=== PATIENT | male | born 1955 | race Caucasian/White ===

== ENCOUNTER 2016-10-08 20:14 | Emergency (ER) | payer BC ==
[~2016-10-08] VITALS: Ht 182.9 cm; Wt 104.3 kg
[2016-10-08 20:42] LABS: HEMOGLOBIN 14.4 g/dL (14.1-18.0); LYMPH # 2.1 K/mm3 (0.7-4.5); LYMPH % 25.8 % (10-50)
[2016-10-08 20:46] LABS: URINE BILIRUBIN - DIPSTICK NEGATIVE (NEG); URINE BLOOD 2+ (NEG)
--- OUTSIDE RECORDS SUMMARY | 2016-10-08 21:51 | External Medical Summary Rpt ---
Author Author IVETH Address Unknown Phone [email or web address] Purpose Continuity of Care Document - through 2016
--- OUTSIDE RECORDS SUMMARY | 2016-10-08 21:51 | External Medical Summary Rpt ---
Author Author IVETH Address Unknown Phone [email or web address] Purpose Continuity of Care Document - through 2016
--- OUTSIDE RECORDS SUMMARY | 2016-10-08 21:51 | External Medical Summary Rpt ---
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 [place] ARTERIES OF EXTREMITIES WITH INTERMITTEN T CLAUDICATIO N, BILATERAL LEGS I25.2 OLD 07-16-2016 MYOCARDIAL INFARCTION K21.9 GASTRO-ESOP 07-16-2016 HAGEAL REFLUX DISEASE WITHOUT ESOPHAGITIS M19.90 UNSPECIFIED 07-16-2016 OSTEOARTHRI TIS, UNSPECIFIED SITE R06.02 SHORTNESS 07-16-2016 OF BREATH R07.9 CHEST PAIN, 07-16-2016 UNSPECIFIED 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
--- OUTSIDE RECORDS SUMMARY | 2016-10-08 21:51 | External Medical Summary Rpt ---
Author Author JOSE Akhtar, JOSE Akhtar Organization [employer] Address Unknown Phone Unavailable
--- OUTSIDE RECORDS SUMMARY | 2016-10-08 21:51 | External Medical Summary Rpt ---
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.213 ATHEROSCLER 07-19-2016 OSIS OF [place] ARTERIES OF EXTREMITIES WITH INTERMITTEN T CLAUDICATIO N, BILATERAL LEGS I25.2 OLD 07-16-2016 MYOCARDIAL INFARCTION K21.9 GASTRO-ESOP 07-16-2016 HAGEAL REFLUX DISEASE WITHOUT ESOPHAGITIS M19.90 UNSPECIFIED 07-16-2016 OSTEOARTHRI TIS, UNSPECIFIED SITE R06.02 SHORTNESS 07-16-2016 OF BREATH R07.9 CHEST PAIN, 07-16-2016 UNSPECIFIED 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
--- OUTSIDE RECORDS SUMMARY | 2016-10-08 21:51 | External Medical Summary Rpt ---
Demographics Preferred Language Nigerian Marital Status Unknown Restorationism Affiliation Unknown Race Unknown Ethnic Group Unknown Author Author JOSE Address Unknown Phone Immunization No patient found.
--- OUTSIDE RECORDS SUMMARY | 2016-10-08 21:51 | External Medical Summary Rpt ---
Demographics Preferred Language Pakistani Marital Status Unknown Denominational Affiliation Unknown Race Unknown Ethnic Group Unknown Author Author JOSE Address Unknown Phone Immunization No patient found.
--- NOTE | 2016-10-08 22:34 | Emergency Room Report ---
History of Present Illness Time Seen by [id number] Presenting Problem in Triage Pt arrived:Walked Presenting Problem:C/O LEFT FLANK PAIN STARTED TODAY. HX KIDNEY STONES ALSO C/O DYSURIA VOICED. 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 N Clinical Suspician of Infection? N Mental Status: 1 - Regular (Normal Baseline) Sepsis Risk:Low Sepsis Risk Have you (or family members/close friends) recently traveled outside the [place]? N If Yes, where/when: Have you had exposure to infectious disease within the past month? N TB? Other? Specify: Source patient, RN notes reviewed, family, old records Exam Limitations no limitations Comment pt with lt flank pain today with nausea and hx of kidney stones Cardiac Chest Pain Chest pain indicative of cardiac No Timing/Duration this evening Severity moderate ALLERGIES Coded Allergies: No Known Allergies (10/08/16) History Medical History General CAD? Yes Angina: Yes [place]: Yes Hypertension? Yes Hyperlipidemia? Yes CHF? Yes DVT? No PE? No COPD? No Asthma? No Anemia? No GERD? No Gastric ulcers? Yes GI Bleed? No Hernia? Yes Thyroid Problems? No Hypothyroidism? No CVA? Yes Seizures? No Diabetes? No Renal Insuffiency? No End Stage Renal Disease? No UTI? No Stones? Yes BPH? No GB Disease: No Nephritic Syndrome? No Asplenia? No Hepatitis? No Sickle Cell Disease? No Arthritis? No Migraines? No Cataracts? No Glaucoma? No MRSA? No HIV? No TB? No Anxiety? No Depression? No Cancer? No Immunization Hx DT/Tetanus Unknown Surgical Hx Previous Surgery?Y CABG X 5 IN 2003 HERNIA REPAIR Social History Smoking Hx Smoker: Never Smoker Tobacco: No Alcohol Alcohol: No Drugs none Review of Systems All Other Systems Reviewed and Negative Constitutional denies fever Eyes denies drainage ENT denies: ear discharge, epistaxis, throat pain. Respiratory denies cough, denies shortness of breath, denies wheezing Cardiovascular denies chest pain, denies palpitations, denies syncope Gastrointestinal see HPI, denies abdominal pain, nausea Genitourinary see HPI. denies: dysuria, frequency, hesitancy, hematuria, scrotal/testicular pain. Musculoskeletal denies back pain, denies joint swelling Skin denies rash Psychiatric/Neurological denies headache, denies seizure Physical Exam Vital Signs Vital Signs Date Time Temp Pulse Resp B/P Pulse O2 O2 Flow FiO2 Ox Delivery Rate 10/085 63 20 130/83 95 10/08 2206 57 20 134/86 92 10/08 2124 68 20 152/101 96 10/08 2053 20 10/08 2021 99.3 72 20 147/92 96 - WBC >12,000 or <4,000 or 10% bands? 2 or more SIRS Criteria Met? B/P:130/83 MAP:110 Creatinine >2.0? UA output<0.5ml/kg/hr for 2 hrs? Platelet count >100,000? Lactate >2.0mmol/1? INR >1.2 or PTT > than 60 sec? Evidence of Organ Dysfunction? Provider documented clinical suspician of infection? N Sepsis Criteria Count: 1 Sepsis Risk: Low Sepsis Risk General Appearance no apparent distress Eye Exam - bilateral eye PERRL, bilateral eye EOMI Ear, Nose, Throat normal ENT inspection Neck supple Respiratory Status No: respiratory distress. Lung Sounds bilateral: lungs clear. 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 No Results/Orders Laboratory Tests 10/08/162038: Urine Color YELLOW, Urine Appearance CLEAR, Urine pH 6.0, Ur Specific [place] >= 1.030, Urine Protein TRACE H, Urine Ketones NEGATIVE, Urine Blood 2+ H, Urine Nitrate NEGATIVE, Urine Bilirubin NEGATIVE, Urine Urobilinogen 0.2, Ur Leukocyte Esterase NEGATIVE, Urine RBC 10-20, Urine WBC OCC, Ur Squamous Epith Cells NONE, Urine Bacteria TRACE, Urine Glucose NEGATIVE 10/08/162029: Sodium 141, Potassium 4.2, Chloride 106, Carbon Dioxide 32, BUN 21 H, Creatinine 0.9, Estimated Creat Clear 126, Estimated GFR (MDRD) 86, Glucose 102, Calcium 8.9, Total Bilirubin 0.5, AST 24, ALT 31, Alkaline Phosphatase 143 H, Total Protein 7.1, Albumin 3.6, Globulin 3.5 H, Albumin/Globulin Ratio 1.0 L, WBC 8.1, RBC 4.89, Hgb 14.4, Hct 43.0, MCV 88.0, RDW 13.4, Plt Count 210, MPV 8.7, Gran % 64.5, Gran # 5.2, Lymphocytes % 25.8, Monocytes % 5.1, Eosinophils % 3.9, Basophils % 0.6, Lymphocytes # 2.1, Monocytes # 0.4, Eosinophils # 0.3, Basophils # 0.1, PUBS MCHC 33.4, MCH 29.4 Current Medication Orders Sig/Narinder Start time Last Medication Dose Route Stop Time Status Admin Sodium Chloride 1,000 ML .STK-MED ONE 10/09 2127 DC IV Ketorolac 30 MG ONCE ONE 10/08 2099 DC 10/08 Tromethamine IV 10/08 Ondansetron HCl 4 MG ONCE ONE 10/08 2099 DC 10/08 IV 10/08 Sodium Chloride 1,000 ML .Q1H1M 10/08 2099 DC 10/08 IV 10/08 Sodium Chloride 10 ML PRN PRN 10/08 2099 AC IV 10/09 2049 Ketorolac 0 .STK-MED ONE 10/09 2051 DC Tromethamine .ROUTE Ondansetron HCl 0 .STK-MED ONE 10/09 2051 DC .ROUTE Sodium Chloride 1,000 ML .STK-MED ONE 10/09 2051 DC IV Sodium Chloride 10 ML PRN PRN 10/08 2044 AC IV 10/09 2030 Orders Procedure Date/time Status DIET-NOTHING BY MOUTH 10/[address] ABD & PELVIS W/O CONTRAST 10/[address] ABD/PELVIS REQ 10/09 2031 Complete IV SALINE LOCK 10/09 2031 Active CBC WITH AUTO DIFF 10/09 2031 Complete CHEM 12 PROFILE 10/09 2031 Complete URINALYSIS/COMPLETE 10/08 2017 Complete XRAY/CT/US XRAY/CT/US CT abdomen, pelvis CT interpretation by discussed w/radiologist Time results known: 2200 CT Results abnormal (see report) Departure Departure Time of Disposition 2232 Disposition DC Home or Self Care(routine) Clinical Impression Primary Impression: Renal colic on left side Condition STABLE Referrals JENNY SANCHEZ (Family) Patient Instructions DI for Kidney Stones Additional Instructions fluids and see pcp for follow up Discharge Counseling Counseled pt/family regarding diagnosis, test results, follow up needs ED Critical Care Critical Care No at 2240
[2016-10-08 22:59] VITALS: BP 117/69
--- NOTE | 2016-10-09 09:34 | RADIOLOGY REPORT PS360 ---
CT ABD PELVIS W/O CONTRAST CLINICAL INDICATION: LT FLANK PAIN ORDERING PHYSICIAN: Diallo Biggs MD PATIENT AGE: 61 years COMPARISON: None TECHNIQUE: Axial images obtained with sagittal and coronal reformats. PROCEDURE: Oral Contrast: None IV Contrast: None . FINDINGS: Lower thorax: No acute finding Abdomen and pelvis: Multiple hepatic cysts are present the largest located centrally measuring up to 8.6 cm. There has been a prior cholecystectomy. No biliary dilatation. The spleen, adrenal glands, and pancreas have an unremarkable unenhanced CT appearance. No renal calculi are evident. There is mild left hydronephrosis and hydroureter. The ureter is dilated to the pelvic inlet and normal in caliber distal to this region. At the area of narrowing there is a tiny calcification which could represent a ureteral stone. One was not expect however this degree of dilatation with a 1 to 2 mm stone. An associated stenosis of the ureter is also considered. No intestinal obstruction or free air. No evidence of appendicitis or diverticulitis. There is sigmoid diverticulosis. No acute bony anomalies. IMPRESSION: 1. Left hydronephrosis and hydroureter with suggestion of a tiny stone in the distal one third of the ureter at the region of the pelvic inlet. There may also be a ureteral stenosis at this area. Consider urology consult with possible cystoscopy/ureteroscopy for further evaluation. 2. Multiple hepatic cysts
== END 2016-10-08 23:00 | disposition home or self-care (01) ==
LOC: ER 20:14
PROVIDERS: Emergency Medicine
DX: N13.2 Hydronephrosis with renal and ureteral calculous obstruction (principal); Z87.442 Personal history of urinary calculi; I25.10 Atherosclerotic heart disease of native coronary artery without angina pectoris; I10 Essential (primary) hypertension
CPT/HCPCS: J2405